=== PATIENT | male | born 1995 | race Caucasian/White ===

== ENCOUNTER 2021-07-02 09:15 | Emergency (ER) | payer OTHER ==
[2021-07-02] MEDS ORDERED: KEFLEX250 MG PO (10:51)
== END 2021-07-02 12:15 | disposition home or self-care (01) ==
LOC: FER 09:15
DX: S51.821A Laceration with foreign body of right forearm, initial encounter (principal); K21.9 Gastro-esophageal reflux disease without esophagitis; F17.210 Nicotine dependence, cigarettes, uncomplicated; Z79.899 Other long term (current) drug therapy; Z23 Encounter for immunization; W26.8XXA Contact with other sharp object(s), not elsewhere classified, initial encounter; Y92.009 Unspecified place in unspecified non-institutional (private) residence as the place of occurrence of the external cause
CPT/HCPCS: 73090; 90471; 90715

== ENCOUNTER 2021-12-03 21:12 | Emergency (ER) | payer OTHER ==
[~2021-12-03 21:12] MED LIST: KEFLEX250 MG PO
[2021-12-03] MEDS ORDERED: NORCO 5-325 TA1 EACH PO (22:18)
== END 2021-12-03 22:27 | disposition home or self-care (01) ==
LOC: FER 21:12
DX: S63.91XA Sprain of unspecified part of right wrist and hand, initial encounter (principal); Z28.310 Unvaccinated for COVID-19
CPT/HCPCS: 73130